=== PATIENT | male | born 1975 | race Caucasian/White ===

== ENCOUNTER 2020-03-06 17:19 | Emergency (ER) | payer OTHER ==
[2020-03-06 17:30] VITALS: BP 126/91
[2020-03-06] MEDS ORDERED: BACITRACIN ZINC OINT 1 PACKET TOP STA (19:57)
[2020-03-06] MEDS ORDERED: TETANUS/DIPHTHERIA/PERTUSSIS 0.5 ML SYRINGE IM ONE (19:57)
[2020-03-06] MEDS ORDERED: BUFFERED LIDOCAINE 10 ML SYRINGE SUBQ STA (19:58)
--- NOTE | 2020-03-06 20:05 | ED Physician Documentation ---
PD HPI UPPER EXT INJURY - Stated complaint Stated Complaint: L HAND LAC - Chief complaint Chief Complaint: Laceration - History obtained from History obtained from: Patient - History of Present Illness Location: Left, Hand Type of injury: Laceration Where injury occurred: Home Timing - onset: How many hours ago (3) Timing - details: Abrupt onset Improved by: Rest, Immobilization Worsened by: Moving, Palpating Associated symptoms: Swelling. No: Weakness, Numbness, Tingling - Additonal information Additional information: 44-year-old male here with a laceration to his left thenar eminence. Reports that he was opening a package with a large humphrey knife when it slipped and cut him. He is concerned that he may have hit the joint of the thumb however he does move it normally. Unknown last tetanus. Patient denies diabetes.Patient is a right-handed Review of Systems Constitutional: denies: Fever Cardiac: denies: Chest pain / pressure, Palpitations Respiratory: denies: Cough Skin: reports: Lesions (Laceration), Laceration (s) PD PAST MEDICAL HISTORY - Past Medical History Past Medical History: No - Allergies Allergies/Adverse Reactions: Allergies Allergy/AdvReac Type Severity Reaction Status Date / Time Penicillins Allergy Anaphylaxis Verified 03/06/20 17:30 - Social History Does the pt smoke?: No Smoking Status: Never smoker Does the pt drink ETOH?: Yes Does the pt have substance abuse?: No - POLST Patient has POLST: No PD ED PE NORMAL - General General: Alert and oriented X 3, No acute distress, Well developed/nourished - Extremities Extremities: Other (2.5 cm linear laceration to the left thenar eminence. Patient able to move thumb normally against resistance in all planes. Normal flexion extension of the wrist. Full grasp. 2+ distal radial pulse. Brisk cap refill.) Results - Vitals Vitals: Vital Signs - 24 hr 03/06/20 17:26 Temperature 37.1 C Heart Rate 67 Respiratory 20 Rate Blood Pressure 126/91 H O2 Saturation 99 Oxygen O2 Source Room air - Rads (name of study) left hand Radiology: Final report received (No acute fracture) Procedures - Laceration (location) left hand Length in cm: 3 Wound type: Linear Neurovascular status: Sensory intact, Motor intact, Vascular intact Anesthesia: Lidocaine 1% Wound Preparation: Chlorhexadine, Irrigated copiously NS Skin layer closure: Nylon, Sutures - enter # (4) Other: Patient tolerated well, No complications Complexity: Simple PD MEDICAL DECISION MAKING - ED course Complexity details: reviewed results, d/w family ED course: 44-year-old male here with a simple laceration to his left thenar eminence after cutting open a box at home. Neurovascular intact without evidence of joint capsule involvement.4 sutures placed they can be removed by the [facility] physician in 7 to 10 days. Tetanus was updated in the emergency department. Timely closure of the wound will defer prophylactic antibiotics at this time. Routine wound care discussed with patient and return precautions for concerns of infection Departure - Departure Disposition: 01 Home, Self Care Clinical Impression: Hand laceration Qualifiers: Encounter type: initial encounter Foreign body presence: without foreign body Laterality: left Qualified Code(s): S61.412A - Laceration without foreign body of left hand, initial encounter Condition: Stable Instructions: ED Laceration Hand Comments: Your sutures can be removed in 7 to 10 days [facility]. Please keep your hand clean and dry for the next 24 hours. At that point you may wash it every day with warm soap and water. Apply thin layer of antibiotic ointment. Please return to the emergency department if you have hand swelling, redness, milky drainage from the wound, fevers or increased pain or any other concerns of infection. Your tetanus was updated today and it will be good for the next 7 to 10 years
--- NOTE | 2020-03-06 20:26 | XRAY Report ---
PROCEDURE: Hand 2 View LT INDICATIONS: r/o fx of thumb TECHNIQUE: 2 views of the hand(s) acquired. COMPARISON: None. FINDINGS: Bones: No fractures or dislocations. No suspicious bony lesions. Soft tissues: No suspicious soft tissue calcifications. IMPRESSION: No definite fracture however follow-up radiographs in 10 days could be performed if the patient's sym ptoms do not improve to exclude occult fracture/assess for healing sclerosis. Reviewed by: Shakeel Horton MD on 03/06/2020 8:24 PM PDT Approved by: Shakeel Horton MD on 03/06/2020 8:24 PM PDT Station ID: [id number]
== END 2020-03-06 20:48 | disposition home or self-care (01) ==
LOC: ED 17:19
DX: S61.412A Laceration without foreign body of left hand, initial encounter (principal); W26.0XXA Contact with knife, initial encounter; Y93.89 Activity, other specified; Y92.009 Unspecified place in unspecified non-institutional (private) residence as the place of occurrence of the external cause
CPT/HCPCS: 12002; 73120; 90471; 90715; 99282; 99283; A9270

== ENCOUNTER 2020-07-22 09:39 | Outpatient (CLI) | payer OTHER | END 2020-07-22 09:40 | disposition home or self-care (01) | LOC: LAB 09:39 | PROVIDERS: ATTEND Physician Assistant | DX: Z01.812 Encounter for preprocedural laboratory examination (principal); Z20.828 Contact with and (suspected) exposure to other viral communicable diseases ==

== ENCOUNTER 2020-08-26 10:36 | Outpatient (CLI) | payer OTHER ==
--- NOTE | 2020-08-26 12:48 | SLEEP CARE CONSULTATION ---
Information from patient questionnaire entered by Hawa Tan. I have reviewed and concur with the information entered by Hawa Tan. This document represents the service I personally performed and the decisions made by me, Judit Watts MD, [facility]. History of Present Illness Service Date and Time: 08/26/2020 1036 Reason for Visit: New patient Chief Complaint: reports: Snoring, Frequent awakenings at night, Other (falling asleep while driving) Date of Onset: about 2-3 months Usual bedtime: 9 pm Time it takes to fall asleep: 30-45 minutes Snores at night: Yes Observed to quit breathing while asleep: Yes Sleeps alone due to snoring: No Number of times waking at night: 2-3 Reasons for waking at night: reports: Snoring, Gasping for air, Bathroom Toss, Turn, or Twitch while sleeping: Yes Recalls having dreams: Yes Usually gets out of bed at: 5:40-6:30 am Feels refreshed in the morning: No Morning headache: No Sleepy or fatigued during the day: Yes Additional HPI information: I had the pleasure of seeing Mr. Birmingham today regarding the possibility of him having a sleep disorder. As you know, he is a 44 year old gentleman who complains of loud snore, frequent awakenings, and excessive daytime sleepiness. The patient tells me that he normally goes to bed around 9 pm, and it takes him approximately 30 - 45 minutes to fall asleep. He has been told that he snores loudly and irregularly at night. He has also been observed to stop breathing in his sleep. His can still sleep in the same bed. He can recall waking up on the average of 2 - 3 times during the night. Most of the time he wakes up because of having to use the bathroom. He has awakened occasionally because of his own snoring, choking, and having to gasp for air. There is a lot of tossing and turning in his sleep. No somniloquy (sleep talking) or somnambulism (sleep walking). Generally he can recall having dreams. In the morning he usually gets up out of the bed around 5:40 6:30 a.m. not feeling refreshed nor rested. He usually does not have a morning headache. During the day he complains of feeling sleepy and fatigued. His score on Greer Sleepiness Scale is 21 out of 24. He has fallen asleep while driving and has gone out of the benny. He usually does not take naps during the day. Upon falling asleep during the day he denies having vivid dreams. He has never had sleep paralysis. There are some symptoms of restless leg syndrome. He reports having impaired concentration during the day. Subjective Initial Greer Sleepiness Scale score: 21 (in 2019) Past Medical History Past Medical History: reports: Hypertension, Anxiety Social History The patient's occupation is a Active . Patient is and lives in [place]. Have you smoked in the past 12 months: Yes Cigarettes per day (20/pack): 5 Years of smokin Smoking Pack Years: 4.0 Alcohol use: Yes Alcohol amount and frequency: 2-3 drinks on weekends Caffeine use: Yes Caffeine amount and frequency: 4-5 cups Family History Family history of sleep disordered breathing: No Family Hx Sleep Apnea: Father: Snoring, Grandparent: Snoring Allergies and Home Medications Drug allergies reviewed: Yes (penicillin) Home medication list reviewed: Yes (Flexeril) Review of Systems Weight gain over past 5 years: 15 Weight loss over past 5 years: 5 Cardiovascular: reports: high blood pressure Respiratory: denies: shortness of breath, wheeze, sputum production, chronic cough, other Gastrointestinal: reports: heartburn, nausea Urinary: denies: incontinence, frequency, urgency, impotence, other Neurological: denies: headaches, seizure, head trauma, disorientation, speech dysfunction, gait or balance problems, fainting or unconsciousness, other Psychiatric: reports: anxiety, depression Ear/Nose/Throat: denies: nasal congestion, sinus problems, nose bleeds, dry mouth/throat, hoarseness, injury to nose, tonsillectomy, wisdom teeth removed, other Endocrine: denies: thyroid disease, history of goiter, sluggishness, too hot or cold, excessive thirst, increased appetite, increased urination, unexplained weakness, other Musculoskeletal: reports: joint pain, neck pain, back pain, muscle pain or cramping Immunologic: denies: sneezing, rash, itching, allergies to food or environment, other Physical Exam Vital signs obtained and entered by: To minimize the risk of COVID-19 exposure, detailed exam was not performed. Height: 5 ft 8 in Weight: 180 lb Body Mass Index: 27.3 BMI Classification: Overweight Impression and Plan IMPRESSION: 1. Obstructive Sleep Apnea-Hypopnea Syndrome, as suggested by history of loud and irregular snoring, observed cessation of breath while asleep, frequent awakenings during the night, nocturnal choking, unrefreshed sleep, cognitive impairment, and daytime hypersomnolence. Narrow oropharynx and obesity are common predisposing factors for obstructive sleep apnea-hypopnea syndrome. Untreated obstructive sleep apnea can also cause hypertension. Pathophysiology of sleep-disordered breathing was discussed. I recommend proceeding to polysomnography to confirm the diagnosis and to assess severity. If he has significant sleep disordered breathing, a manual CPAP titration study will also be performed to find the optimal treatment pressure. I informed the patient of what the sleep studies involve and after some discussion, he agreed to proceed. Plan: 1. Schedule polysomnography and possibly manual CPAP titration study 2. Avoid long distance driving or when feeling sleepy. 3. Avoid alcohol, sedative and muscle relaxant around bedtime. 4. Attempt to lose some weight. 5. Return in 1 to 2 weeks after the study to discuss results and initiate therapy. Visit Type: In Office Time Spent with Patient (minutes): 15 Provider Statement: I spent 100% of the Face to Face Visit with the patient with greater than 50% spent counseling the patient and coordination of care.
== END 2020-08-26 10:37 | disposition home or self-care (01) ==
LOC: SC 10:36
PROVIDERS: ATTEND Internal Medicine Pulmonary Disease
DX: R06.83 Snoring (principal); G47.8 Other sleep disorders; G47.10 Hypersomnia, unspecified; R06.81 Apnea, not elsewhere classified; R41.89 Other symptoms and signs involving cognitive functions and awareness; E66.3 Overweight; Z68.27 Body mass index [BMI] 27.0-27.9, adult; F17.210 Nicotine dependence, cigarettes, uncomplicated
CPT/HCPCS: 99203; 99212